=== PATIENT | female | born 1945 | race Caucasian/White ===

== ENCOUNTER 2021-02-13 06:14 | Emergency (ER) | payer MEDICARE ==
[~2021-02-13] VITALS: Ht 167.6 cm; Wt 68.0 kg
[2021-02-13] MEDS ORDERED: ONDANSETRON HCL 4MG/2ML INJ IV STA (07:18)
[2021-02-13] MEDS ORDERED: MORPHINE SULFATE 4 MG/ML CPJ (NOT FOR IM USE) IV STA (07:18)
[2021-02-13 07:41] LABS: CLARITY URINE CLEAR (CLEAR); COLOR URINE YELLOW (YELLOW); KETONES URINE 2+ (NEGATIVE); LEUKOCYTE ESTERASE URINE TRACE (NEGATIVE); NITRITE URINE NEGATIVE (NEGATIVE); OCCULT BLOOD URINE NEGATIVE (NEGATIVE); PH URINE 6.5 (4.5-8.0); PROTEIN URINE NEGATIVE (NEGATIVE); UROBILINOGEN URINE 0.2 E.U./dL (0.2-1.0)
[2021-02-13 08:42] LABS: CHLORIDE 102 mEq/L (98-107)
[2021-02-13 08:43] LABS: BASOPHILS % 0.7 % (0.0-2.0); EOSINOPHILS % 3.1 % (0.0-5.0); HEMATOCRIT. 36.4 % (36.0-48.0); HEMOGLOBIN. 12.3 g/dL (12.0-16.0); MEAN CORPUSCULAR HEMOGLOBIN 25.1 pg (28.0-32.0); MEAN CORPUSCULAR VOLUME 74.4 fL (81.0-99.0); MEAN PLATELET VOLUME 8.7 fl (7.4-10.4); MONOCYTES % 7.2 % (2.0-8.0); PLATELET 279 x1000/uL (130-400); RED CELL DISTRIBUTION WIDTH 17.6 % (11.6-14.6)
[2021-02-13] MEDS ORDERED: IOHEXOL-300 100 ML BOTTLE ONE (10:13)
[2021-02-13] MEDS ORDERED: SODIUM CHLORIDE 0.9% 1,000 ML IV ONE ×2 (11:00→13:15)
[2021-02-13] MEDS ORDERED: KCL 20MEQ/100ML PREMIX 100 ML IV ONE (11:00)
[2021-02-13] MEDS ORDERED: ACETAMINOPHEN 325MG TABLET PO ONE (13:00)
[2021-02-13] MEDS ORDERED: AMOXICILLIN/POTASSIUM CLAVULANATE 875/125MG TAB PO ONE (13:30)
[2021-02-13 16:00] VITALS: BP 156/84
== END 2021-02-13 17:00 | disposition short-term general hospital (02) ==
LOC: ER 06:14 → CANBEDREQ 17:20
DX: E86.0 Dehydration (principal); E87.6 Hypokalemia; R62.7 Adult failure to thrive; F32.9 Major depressive disorder, single episode, unspecified; E78.00 Pure hypercholesterolemia, unspecified; Z68.24 Body mass index [BMI] 24.0-24.9, adult; Z96.651 Presence of right artificial knee joint; Z87.81 Personal history of (healed) traumatic fracture
CPT/HCPCS: 36415; 74177; 80053; 81003; 85025; 93005; 96361; 96365; 96366; 96375; 99285; J2270; J2405; J3480; J7030; Q9967